=== PATIENT | female | born 1960 | race Caucasian/White ===

== ENCOUNTER 2021-12-06 14:48 | Emergency (ER) | payer BC, SELFPAY ==
--- NOTE | 2021-12-06 14:53 | ED.EXTPRO ---
HPI - Extremity Problem General Chief complaint: Extremity Problem,Nontraumatic Stated complaint: L ARM PAIN Time Seen by Provider: 12/06/21 14:53 Source: patient Mode of arrival: ambulatory Limitations: no limitations History of Present Illness HPI Narrative: Ms. Bauer is a 61-year-old female patient presenting to the clinic today with complaints of left arm pain 2.5 weeks. She reports that the pain occurs with movement of her left arm such as reaching to get the seatbelt in the car and carrying her purse. She denies any known injury. Reports that the pain does radiate into her left side of the neck now and she is having some chest tightness. Her blood pressure is 172/98 in the clinic today. She does not have a history of HTN. She denies any dizziness, headache, or shortness of breath. Related Data Allergies Allergy/AdvReac Type Severity Reaction Status Date / Time No Known Allergies Allergy Verified 12/06/21 15:11 Review of Systems Review of Systems: Pertinent positives per HPI. Patient denies any fever, chills, rash, headache, visual changes, dizziness, cough, runny nose, sore throat, shortness of breath, chest pain, palpitations, nausea, vomiting, diarrhea, constipation, abdominal pain, or any urinary issues. PMFSH Comments At the time of my signature, I reviewed and agree with the nursing past medical, surgical, social, and family history. There is no relevant family history pertinent to the patient complaint. Exam Narrative: General: Well-developed, well nourished, in no apparent distress Head: Normocephalic, atraumatic. Cardio: Regular rate and rhythm, s1 and s2 normal, no murmur appreciated. Resp: Clear to auscultation bilaterally, no rhonchi, rales, wheezing or rubs. Musculoskeletal: No deformity, tender to palpation over the biceps muscle with pain radiating into the left cervical aspect of the trapezius. Grossly normal range of motion, negative empty can and full can testing, negative crossarm test, negative Hawking's, muscle strength strong and equal, peripheral pulse strong, no edema, no cyanosis, normal gait and station Course Course Emergency Course: Portions of this record may have been created with voice recognition software. Level of Care: Express Care Visit Vital Signs Vital signs: Vital signs reviewed MDM - Extremity (Nontraumatic) MDM Narrative Medical decision making narrative: At the time of visit patient is resting comfortably on exam table. EKG was normal sinus rhythm with heart rate 77 bpm. Blood pressure was retaken and was 126/72. I suspect the patient has a muscle strain versus biceps tendinitis to the left upper arm. Prescription for prednisone was given to the patient and supportive measures were discussed and she voiced understanding of discharge instructions and agrees to the treatment plan. Differential Diagnosis Differential diagnosis: Likely other (Muscle strain, biceps tendinitis, cervical strain) ECG Data EKG #1: Attestation EKG: I personally reviewed and interpreted this ECG as follows: ECG completion date: 12/06/21 Prior ECG tracings: not available for review Interpretation: EKG was obtained and showed normal sinus rhythm with a heart rate of 77 bpm, [place] intervals 142 ms, QRS durations 100 ms, QT/QTc is 387/419 ms, P?R?T axes 60-17-31. Discharge Plan Discharge Clinical Impression: Elevated blood pressure reading in office without diagnosis of hypertension, Arm pain, left, Muscle strain Patient Disposition: Home, Self-Care Condition: Stable Instructions: Antibiotic Form, Muscle Strain (ED), Heart Healthy Diet (ED), Hypertension (ED), Arm Pain (ED) Additional Instructions: EKG normal in the clinic. Prednisone 40 mg by mouth daily x5 days May apply Aspercreme, blue emu, or lidocaine to the affected area May apply ice pack to the affected area May take Tylenol/Motrin as needed for pain. Avoid any heavy lifting-no more than a
[2021-12-06 15:05] VITALS: BP 172/98; PULSE 102; RESP 16; TEMP 37.3; O2SAT 98
--- NOTE | 2021-12-06 15:12 | ECG_ITS ---
Measurements Intervals [place] Rate: 77 P: 60 WA: 142 QRS: 17 QRSD: 100 T: 31 QT: 387 QTc: 439 Interpretive Statements SINUS RHYTHM MINIMAL Q WAVES- INFERIOR LEADS BORDERLINE ECG Electronically Signed On 12-08-2021 18:19:55 CDT by Tl Puente D.O.
[2021-12-06 15:29] VITALS: BP 126/72; PULSE 72
== END 2021-12-06 15:35 | disposition home or self-care (01) ==
PROVIDERS: Emergency Provider Nurse Practitioner Family
DX: R03.0 Elevated blood-pressure reading, without diagnosis of hypertension (principal); S46.212A Strain of muscle, fascia and tendon of other parts of biceps, left arm, initial encounter; X58.XXXA Exposure to other specified factors, initial encounter
CPT/HCPCS: 93005; 99203; G0463

== ENCOUNTER 2024-05-13 08:05 | Emergency (ER) | payer BC, SELFPAY ==
[2024-05-13 08:13] VITALS: BP 144/81; PULSE 108; RESP 16; TEMP 36.3; O2SAT 100
[2024-05-13 08:21] LABS: EDUAAPPEAR Clear; EDUABILI Negative (Negative); EDUABLOOD Trace (Negative); EDUACOLOR1 Yellow; EDUAGLUCOSE Negative (Negative); EDUAKETONE Negative (Negative); EDUALEUKO Negative (Negative); EDUANITRATE Negative (Negative); EDUAPROTEIN Negative (Negative); EDUASPGRAVITY 1.015; EDUAUROBILI 0.2
--- NOTE | 2024-05-13 08:31 | ED.FEMALEGU ---
HPI - Female Genitourinary General Chief complaint: Urogenital-Female Stated complaint: Abdominal Pain Time Seen by Provider: 05/13/24 08:14 Source: patient and RN notes reviewed Mode of arrival: ambulatory Limitations: no limitations History of Present Illness HPI Narrative: Patient presents today complaining of a 3 day history of suprapubic pain that has been worsening since onset, with a 2 day history of headache. She has taken some Tylenol which did provide some relief. Denies dysuria, hematuria, frequency. Related Data Home Medications ?Medication ?Instructions ?Recorded ?Confirmed ?Last Taken ?Type etodolac 400 mg tablet mg 05/13/24 Unknown History risedronate 150 mg tablet mg PO 05/13/24 Unknown History Allergies Allergy/AdvReac Type Severity Reaction Status Date / Time No Known Allergies Allergy Verified 05/13/24 08:27 Review of Systems Review of Systems: CONSTITUTIONAL: Denies body aches, fever, chills, or sweats. EYES: Denies visual changes, redness, or discharge. ENT: Denies rhinorrhea, congestion, sore throat, or otalgia. CARDIOVASCULAR: Denies chest pain, palpitations, or edema. RESPIRATORY: Denies cough or dyspnea. GASTROINTESTINAL: Denies nausea, vomiting, or diarrhea.+ suprapubic pain GENITOURINARY: Denies dysuria or hematuria. SKIN: Denies rash, itching, or wounds. MUSCULOSKELETAL: Denies back pain, joint pain, or myalgia. NEUROLOGIC: Denies numbness, tingling, or weakness.+ headache PSYCH: Denies depression or anxiety. PMFSH Comments At time of signature, I have reviewed and agree with nursing past medical, surgical, social and family history unless otherwise noted. Please see nursing chart for further information. There is no relevant family history pertinent to the presenting complaint Exam Narrative: GENERAL: Well-appearing, well-nourished, and in no acute distress. HEAD: Normocephalic, atraumatic. EYES: EOMI. No redness or drainage. Conjunctivae normal. ENT: Mucous membranes pink and moist. NECK: Normal AROM. CHEST: No respiratory distress. Clear to auscultation. HEART: Regular rate and rhythm. No murmur appreciated. Normal peripheral pulses. ABDOMEN: Soft, nondistended, normal active bowel sounds.+ suprapubic area without rebound or guarding EXTREMITIES: Normal range of motion. No edema. SKIN: Warm, dry, no rash. Capillary refill normal. Normal skin turgor. NEURO: No focal deficits. Alert and oriented x3. Gait steady. PSYCH: Normal affect. No signs of depression or anxiety. Course Course Level of Care: Express Care Visit Vital Signs Vital signs: Vital Signs Temperature 97.3 F L 05/13/24 08:13 Pulse Rate 108 H 05/13/24 08:13 Respiratory Rate 16 05/13/24 08:13 Blood Pressure 144/81 H 05/13/24 08:13 Pulse Oximetry 100 05/13/24 08:13 Temperature 97.3 F L 05/13/24 08:13 Pulse Rate 108 H 05/13/24 08:13 Respiratory Rate 16 05/13/24 08:13 Blood Pressure 144/81 H 05/13/24 08:13 Pulse Oximetry 100 05/13/24 08:13 Reviewed MDM - Female Genitourinary MDM Narrative Medical decision making narrative: Urinalysis shows hematuria. Will treat for presumed UTI with Augmentin. Culture pending. Anticipatory guidance given. ED precautions given. Differential Diagnosis Differential diagnosis: Likely urinary tract infection, vaginitis and cystitis Lab Data Attestation: I reviewed the patient's lab results. Labs: Lab Results 05/13/24 Range/Units 08:14 POC Urine Color Yellow POC Urine Clarity Clear POC Urine pH 7.0 POC Ur Specif [place] 1.015 POC Urine Protein Negative (Negative) POC Ur Glucose (UA) Negative (Negative) POC Urine Ketones Negative (Negative) POC Urine Blood Trace (Negative) POC Urine Nitrite Negative (Negative) POC Urine Bilirubin Negative (Negative) POC Urine Urobilinogen 0.2 POC U Leukocyte Esteras Negative (Negative) Critical Care Time Critical Care Time Critical Care Time: No Discharge Plan Discharge Clinical Impression: Urinary tract infection Qualifiers: Urinary tract infection type: acute cystitis Hematuria presence: with hematuria Qualified Code(s): N30.01 - Acute cystitis with hematuria Patient Disposition: Home, Self-Care Condition: Stable Instructions: Antibiotic Form, Urinary Tract Infection in Women (ED) Additional Instructions: Your urine sample results are consistent with infection today. Take Augmentin as prescribed until gone. Your urine will be sent of for a culture to identify what type of bacteria is causing your infection. If the culture shows that your medication will not get rid of your infection, you will be notified and a new antibiotic will be called in for you. If your symptoms worsen to include fever, sweats, chills, nausea, vomiting, severe abdominal or back pain, please go to the ER for further evaluation. Your blood pressure was elevated above 120/80 today at Urgent Care. This puts you above the threshold for follow up. Please schedule a followup visit with your personal physician as soon as possible, for further evaluation and treatment. Even blood pressure exceeding 120/80 may indicate pre-hypertension. Patient Language: [place] Prescriptions: New amoxicillin-pot clavulanate 875-125 mg tablet 1 tablet PO Q12H 7 Days Qty: 14 0RF No Action etodolac 400 mg tablet risedronate 150 mg tablet PO Follow-up/Referrals: PHYSICIAN,COAT CHECK ATTENDANT [Primary Care Provider] - Time of Disposition: 08:32
== END 2024-05-13 08:35 | disposition home or self-care (01) ==
PROVIDERS: Emergency Provider Nurse Practitioner
DX: N30.01 Acute cystitis with hematuria (principal); M19.90 Unspecified osteoarthritis, unspecified site
CPT/HCPCS: 81003; 87086; 99213; G0463